=== PATIENT | female | born 1955 | race Caucasian/White ===

== ENCOUNTER → 2022-10-15 | Outpatient (CLI) | payer MEDICARE, OTHER | LOC: CARD 11:44 | PROVIDERS: ATTEND Registered Nurse Emergency | DX: E78.2 Mixed hyperlipidemia (principal); F33.1 Major depressive disorder, recurrent, moderate; F41.1 Generalized anxiety disorder; R00.2 Palpitations; I47.1 Supraventricular tachycardia; I49.1 Atrial premature depolarization | CPT/HCPCS: 93225; 93226 ==

== ENCOUNTER → 2022-11-11 | Outpatient (CLI) | payer MEDICARE, OTHER ==
[2022-11-11 14:02] VITALS: BP 118/71
--- NOTE | 2022-11-11 16:39 | Cardiology Stress Test Report ---
Stress Test Report Date of Procedure/Referring: Date of Procedure: November 11, 2022 PCP Zhane Luna Aprn Admitting Physician Admitting Physician: Attending Physician: Aspen Madrigal MD Indications: Palp Baseline Heart Rate: 68 Baseline Blood Pressure: Blood Pressure Systolic: 118 Blood Pressure Diastolic: 71 Baseline EKG: Baseline EKG: NSR Summary/Conclusion: Summary: In summary, the patient started exercising with a baseline heart rate, blood pressure and EKG mentioned above Patient was able to exercise for a total of 6 minutes on Omar protocol, METs 7.3 Maximum heart rate 135 Maximum blood pressure 185/107 Stress EKG, Minimal nondiagnostic changes Recovery EKG , Return to baseline Conclusion: 1. Good exercise tolerance for a total of 6 minutes on Omar protocol, 7.3 METs, achieving 87 percent of maximum expected heart rate 2. Minimal nondiagnostic EKG changes with exercise returned to baseline during recovery 3. Occasional PVCs noted during recovery otherwise no arrhythmia was noted 4. Hypertensive response to exercise with peak blood pressure 185/107 return to baseline during recovery ASPEN MADRIGAL MD November 11, 2022 16:39
== END ==
LOC: CARD 12:48
PROVIDERS: ATTEND Internal Medicine Cardiovascular Disease
DX: I35.1 Nonrheumatic aortic (valve) insufficiency (principal); R00.2 Palpitations
CPT/HCPCS: 93017; C8929; 93306

== ENCOUNTER → 2022-11-16 | Outpatient (CLI) | payer MEDICARE, OTHER ==
--- NOTE | 2022-11-16 12:13 | Diagnostic Imaging Report ---
INDICATION: Shortness of breath. PA and lateral views were obtained. FINDINGS: The heart size, mediastinal configuration, and pulmonary vascularity are within normal limits. There is no pleural effusion, pneumothorax, or pneumonia. The osseous structures are unremarkable. IMPRESSION: No acute cardiopulmonary abnormality. Dictated by: Dictated on workstation # [id number]
== END ==
LOC: RAD FS 11:05
PROVIDERS: ATTEND Registered Nurse Emergency
DX: R06.00 Dyspnea, unspecified (principal); Z83.2 Family history of diseases of the blood and blood-forming organs and certain disorders involving the immune mechanism; R05.9 Cough, unspecified
CPT/HCPCS: 71046

== ENCOUNTER → 2022-11-26 | Outpatient (CLI) | payer MEDICARE, OTHER ==
[~2022-11-26] MED LIST: RT-ALBUTEROL SULF 2.5 MG/3 ML PRE-MIX VIAL INH ONE
== END ==
LOC: RT 12:37
PROVIDERS: ATTEND Registered Nurse Emergency
DX: R06.00 Dyspnea, unspecified (principal)
CPT/HCPCS: 94060; 94726; 94729